=== PATIENT | female | born 1995 | race Caucasian/White ===

== ENCOUNTER 2018-09-04 11:12 | Emergency (ER) | payer OTHER ==
[2018-09-04 11:21] VITALS: BP 127/90; PULSE 94; TEMP 98.3; BMI 16.4
[2018-09-04 11:46] LABS: HCG,QUALITATIVE URINE Negative
--- NOTE | 2018-09-04 11:47 | PDOC ---
History of Present Illness - General Chief Complaint: Pain Stated Complaint: CHECK IUD PLACEMENT, ABDOMINAL CRAMPS Time Seen by Provider: 09/04/18 11:14 History Source: Patient Exam Limitations: No Limitations - History of Present Illness Initial Comments: 09/04/18 11:42 Patient is a 22F with history of anorexia and chlamydia infection (2014) here today complaining of a cramping pelvic pain that started several days ago. Patient states that she is concerned she has a problem with her IUD, which was placed one year ago. She has not had a problem in that time. Patient reports being sexual active without condoms and is requesting HIV and STD testing. Denies fevers, chills, nausea, vomiting. Denies back pain and dysuria. LMP is current. Past History - Past Medical History Allergies/Adverse Reactions: Allergies Allergy/AdvReac Type Severity Reaction Status Date / Time metronidazole [From Flagyl] Allergy Verified 09/04/18 11:14 Home Medications: Ambulatory Orders Aripiprazole [Abilify] 10 mg PO DAILY 09/04/18 Clonazepam 0.5 mg PO DAILY PRN 09/04/18 L.acidoph,Paracasei, B.lactis [Probiotic] 1 each PO DAILY 09/04/18 Lamotrigine [Lamictal] 50 mg PO DAILY 09/04/18 Vitamin B Complex [Super B-50 Complex] 1 each PO DAILY 09/04/18 COPD: No Psychiatric Problems: Yes - Suicide/Smoking/Psychosocial Hx Smoking History: Current every day smoker Number of Cigarettes Smoked Daily: 1 Information on smoking cessation initiated: Yes Hx Alcohol Use: No Review of Systems - Review of Systems Able to Perform ROS?: Yes Comments:: 09/04/18 11:47 GENERAL/CONSTITUTIONAL: No fever or chills. No weakness. HEAD, EYES, EARS, NOSE AND THROAT: No change in vision. No sore throat. CARDIOVASCULAR: No chest pain or shortness of breath RESPIRATORY: No cough, wheezing, or hemoptysis. GASTROINTESTINAL: No nausea, vomiting, diarrhea or constipation. GENITOURINARY: No dysuria, frequency, or change in urination. MUSCULOSKELETAL: No joint or muscle swelling or pain. No neck or back pain. SKIN: No rash NEUROLOGIC: No headache, vertigo, loss of consciousness, or change in strength/ sensation. ALLERGIC/IMMUNOLOGIC: No hives or skin allergy. *Physical Exam - Vital Signs Last Vital Signs Temp Pulse Resp BP Pulse Ox 98.3 F 94 H 18 127/90 100 09/04/18 11:12 09/04/18 11:12 09/04/18 11:12 09/04/18 11:12 09/04/18 11:12 - Physical Exam Comments: 09/04/18 11:48 GENERAL: Awake, alert, and fully oriented, in no acute distress PELVIC: Normal external genitalia, no cmt, mild L adnexal tenderness, moderate amount of blood in vaginal vault, strings not visualized 2/2 blood, but felt in appropriate position on cervix HEAD: No signs of trauma, normocephalic, atraumatic EYES: PERRLA, EOMI, sclera anicteric, conjunctiva clear ENT: Auricles normal inspection, hearing grossly normal, nares patent, oropharynx clear without exudates. Moist mucosa NECK: Normal ROM, supple, no lymphadenopathy, JVD, or masses LUNGS: No distress, speaks full sentences, clear to auscultation bilaterally HEART: Regular rate and rhythm, normal S1 and S2, no murmurs, rubs or gallops, peripheral pulses normal and equal bilaterally. ABDOMEN: Soft, nontender, normoactive bowel sounds. No guarding, no rebound. No masses EXTREMITIES: Normal inspection, Normal range of motion, no edema. No clubbing or cyanosis. NEUROLOGICAL: Cranial nerves II through XII grossly intact. Normal speech, normal gait, no focal sensorimotor deficits SKIN: Warm, Dry, normal turgor, no rashes or lesions noted. Moderate Sedation - Procedure Monitoring Vital Signs: Procedure Monitoring Vital Signs Temperature 98.3 F 09/04/18 11:12 Pulse Rate 94 H 09/04/18 11:12 Respiratory Rate 18 09/04/18 11:12 Blood Pressure 127/90 09/04/18 11:12 O2 Sat by Pulse Oximetry (%) 100 09/04/18 11:12 ED Treatment Course - RADIOLOGY Radiology Studies Ordered: Category Date Time Status TRANSVAGINAL ULTRASOUND US [US] Stat Ultrasound 09/04/18 11:30 Ordered Medical Decision Making - Medical Decision Making 09/04/18 11:49 Patient is 22F here today with pelvic pain. Mild L sided adnexal tenderness, otherwise normal pelvic with appropriate IUD placement. Vitals normal and stable. HIV/STD labs sent. No signs of PID or need for empiric std treatment. Will do us for further workup. Labs done 4 days ago wnl. 09/04/18 13:25 TVUS shows no free fluid, no ovarian cysts, normal flow to ovaries. Normal IUD placement. Pain improved. Will discharge pending HIV/GC testing. Patient has follow up. *DC/Admit/Observation/Transfer Diagnosis at time of Disposition: Dysmenorrhea - Discharge Dispostion Disposition: HOME Condition at time of disposition: Good Decision to Admit order: No - Referrals - Patient Instructions Printed Discharge Instructions: DI for Dysmenorrhea Additional Instructions: Please follow up with your OBGYN next week. Please return if you have any new, worsening or concerning symptoms, especially increasing pain, fever, and discharge. - Post Discharge Activity
[2018-09-04 11:53] LABS: URINE APPEARANCE Clear; URINE BILIRUBIN Negative (NEGATIVE); URINE COLOR Yellow; URINE GLUCOSE (UA) Negative (NEGATIVE); URINE KETONE Negative (NEGATIVE); URINE LEUK ESTERASE Negative (NEGATIVE); URINE NITRITE Negative (NEGATIVE); URINE PROTEIN Negative (NEGATIVE); URINE UROBILINOGEN 0.2 (0.2-1.0)
[2018-09-04 12:11] LABS: URINE WBC 0-2 (0-5)
[2018-09-04 12:12] LABS: EPI CELLS FEW /HPF; URINE BACTERIA NONE SEEN /hpf (NEGATIVE)
--- NOTE | 2018-09-04 12:30 | PDOC ---
Attending Attestation - Resident Resident Name: Nolberto Membreno - ED Attending Attestation I have performed the following: I have examined & evaluated the patient, The case was reviewed & discussed with the resident, I agree w/resident's findings & plan, Exceptions are as noted - HPI HPI: 09/04/18 12:30 22 yo F with eating disorder, currently admitted for treatment, here with c/o pelvic cramping. states she has new intercourse with new partner, unprotected recently. describes crampy pain. no n/v no vaginal discharge, is currently menstruating. pain started 2 - 3 days ago. no f/c no urinary complaints. no change to stool pain is lower no mod factors. no other complaints. 09/04/18 12:31 - Physicial Exam PE: 09/04/18 12:34 awake alert lungs clear bilaterally heart rrr no mrg abd soft nt nd. ext wwp pelvic with left adnexal tendernes. no cmt. blood in vault. palpable os with iud strings. - Medical Decision Making 09/04/18 12:34 differential pid, ruptured ovarian cyst, dysmenorrhea, ovarian cyst. uti . plan tvus, ua ucg. gc/ chlamydia, hiv and rpr. pt had basic labs drawn 4 days ago per routine for inpatient anorexia. afebrile. 09/04/18 13:21 us wtih no free fluid IUD in place. no pelvic free fluid. bilateral ovaries with normal blood flow. will dc home fu ob/ solution consultant
== END 2018-09-04 13:40 | disposition home or self-care (01) ==
LOC: FER 11:12
DX: N94.6 Dysmenorrhea, unspecified (principal); F17.210 Nicotine dependence, cigarettes, uncomplicated; Z86.19 Personal history of other infectious and parasitic diseases
CPT/HCPCS: 36415; 76830-TC; 81003; 81015; 84703; 86593; 87389; 87491; 87591; 99283-25